=== PATIENT | male | born 1975 | race Caucasian/White ===

== ENCOUNTER 2021-09-20 06:45 | Day surgery (SDC) | payer BC ==
[2021-09-18 12:09] LABS: Absolute Lymphocytes (CBC) 2.2 K/uL (0.7-4.9); Hematocrit 46.6 % (39.6-49.0); Lymphocytes % 38.5 % (15.3-44.8); MPV 8.5 fL (7.6-11.3); RBC Red Blood Cell Count 5.44 M/uL (4.33-5.43)
--- NOTE | 2021-09-18 12:19 | RAD REPORT ---
EXAM DESCRIPTION: Giovani Casas And Prabha (2 Views)09/18/2021 12:12 pm CLINICAL HISTORY: Preop for hernia repair COMPARISON: None FINDINGS: Calcified granuloma left upper lobe. The lungs appear clear of acute infiltrate. The heart is normal size IMPRESSION: No acute abnormalities displayed
[2021-09-18 12:25] LABS: Potassium 4.2 mmol/L (3.5-5.1)
--- NOTE | 2021-09-18 18:24 | EKG ---
Test Date: 2021-09-18 Test Time: 11:57:35 Apartment Leasing Agent: BAKARI MEASUREMENT RESULTS: Intervals: Rate: 62 RI: 160 QRSD: 92 QT: 390 QTc: 395 [place]: P: 82 RI: 160 QRS: 69 T: 73 INTERPRETIVE STATEMENTS: Normal sinus rhythm with sinus arrhythmia Normal ECG No previous ECG available for comparison Electronically Signed On 09-18-21 18:23:20 CONTENT STRATEGIST by Erlin Butler
[2021-09-20] MEDS ORDERED: propofoL 200 MG/20 ML VIAL IV ONE (07:10)
[2021-09-20] MEDS ORDERED: FENTANYL CITR 100 MCG/2 ML ONE (07:10)
[2021-09-20] MEDS ORDERED: KETOROLAC 30 MG/ML INJ ONE (07:11)
[2021-09-20] MEDS ORDERED: ONDANSETRON 4 MG/2 ML VIAL ONE (07:11)
[2021-09-20] MEDS ORDERED: ROCURONIUM 50 MG/5 ML VIAL IV ONE (07:11)
[2021-09-20] MEDS ORDERED: MIDAZOLAM HCL 2 MG/2 ML INJ ONE (07:11)
[2021-09-20] MEDS ORDERED: LIDOCAINE 2% MPF 5 ML VIAL ONE (07:11)
[2021-09-20] MEDS ORDERED: dexAMETHasone 10 MG/ML VIAL ONE (07:11)
[2021-09-20] MEDS ORDERED: Ringers Lactate 1,000 ML IV ONE ×2 (07:23→09:21)
[2021-09-20] MEDS ORDERED: CEFAZOLIN/NS 1gm 1 GM/50 ML BAG ONE (07:24)
--- NOTE | 2021-09-20 09:17 | P.BOP ---
Preoperative diagnosis: tender LIH Postoperative diagnosis: same Primary procedure: Laparoscopic repair of tender left inguinal hernia with mesh Machine Folder: MAYI LANDA (MOTOR INSTALLER) Estimated blood loss: <10cc Specimen: hernia sac Findings: direct and indirect left inguinal hernia Complications: None Drain(s): Other Implants: 3d mesh Transferred to: Recovery Room Condition: Good
[2021-09-20] MEDS ORDERED: GLYCOPYRROLATE 0.2 MG/ML SYR ONE (09:18)
[2021-09-20] MEDS ORDERED: DIPHENHYDRAMINE 50 MG/ML VIAL ONE (09:18)
[2021-09-20] MEDS ORDERED: NEOSTIGMINE 1 MG/ML -5 ML ONE (09:19)
[2021-09-20] MEDS ORDERED: PROMETHAZINE INJ 25 MG/ML AMP ONE (09:50)
[2021-09-20] MEDS ORDERED: CODEINE 30MG/APAP 300MG TAB ONE (11:29)
[2021-09-20 12:12] VITALS: BP 142/86; TEMP 98.3; O2SAT 99
--- NOTE | 2021-09-20 14:12 | OP ---
Date of Procedure: 09/20/2021 Surgeon: Getachew Mullins MD [employer] Operator: Dee Martinez. Preoperative Diagnosis: Tender left inguinal hernia. Postoperative Diagnosis: Tender left inguinal hernia. Procedure: Laparoscopic repair of tender left inguinal hernia with mesh. Estimated Blood Loss: Less than 10 mL. Specimen: Hernia sac from the direct hernia. Findings: Direct and indirect left inguinal hernia. Complications: None. Drains: None. Implant: 3D mesh on the left side, medium size. Indication: This is the case of a male, who comes to us with tender left inguinal hernia. The benef its, alternatives, and risks of laparoscopic possible open repair were fully explained, which include , but not limited to infection, bleeding, damage to adjacent structures, anesthesia complication, rec urrence, chronic pain, chronic numbness, GA, and even . He also understands this may not reliev e any symptoms. He might need more than one surgical intervention. He understood, signed a consent. The area of concern was marked by me and the patient in the holding room. Procedure In Detail: The patient was brought to the operating room, placed in supine position. Anes thesia was done without complication. A time-out was called. Abdominal area was prepped and draped in usual sterile fashion. An incision was made in the infraumbilical region until we found the anter ior rectus sheath. The patient placed in Trendelenburg position. The anterior rectus was opened, mu scle retracted laterally to expose the posterior rectus sheath. The extraperitoneal space was develo ped with the help of blunt dissection and a balloon-tipped trocar placed on that area and directed to hanley the pubic symphysis under direct visualization. The scope was placed in that area and the ballo on was inflated under direct visualization once we created the extraperitoneal space. The balloon wa s deflated and removed under direct visualization. A 5 mm trocar was placed at the pubis symphysis a fter insufflating the area under direct visualization and another one fpc between the first and t he second one. The preperitoneal space was gently developed by exposing the inferior epigastric vess els keeping them anterior. Henok ligament was dissected laterally to the junction with the iliac ve ins. The dissection was continued inferiorly to the iliopubic tract avoiding damage to the femoral b ranch of the genitofemoral nerve and lateral femoral cutaneous nerve. The cord structures were caref ully skeletonized. We noticed 2 things here. He has a direct sac, indirect sac. The direct sac was carefully removed. The indirect sac was reduced back into the abdominal cavity after skeletonizing the cord structures and making sure they remained safe. At that moment, I proceeded to introduce the mesh sheet over the left inguinal region, 3D mesh rolled in a cylinder and then direct and aligned t o this area to cover direct and indirect spaces. The mesh was secured in place lateral and superior to the iliopubic tract and inferior medial to the Henok ligament with the help of [employer]. After e nsuring adequate hemostasis and while holding the mesh in place, we proceeded to deflate the area und er direct visualization. After that, I closed the anterior rectus sheath with #1 Vicryl and the skin in a subcuticular fashion with 3-0 chromic and Steri-Strips on top. Sponge count and instrument cou nts correct. At the end of the case, testicles were in the scrotum. The patient sent to recovery in stable condition. FROY/ROB Voice ID: [id number] Report ID: [id number]
--- NOTE | 2021-09-20 14:19 | DS ---
Date of Discharge: 09/20/2021 Diagnosis: Tender left inguinal hernia. Procedure: Laparoscopic repair of tender left inguinal hernia with mesh. Disposition: Home. Activity: As tolerated. No heavy lifting. Plan: Follow up in my office in 1 week. Call for appointment at [phone]. Keep area dry for 48 zhen rs, then may shower. Cold compress to the left inguinal region for 24 hours. Medications: See orders. FROY/MODNelson Voice ID: [id number] Report ID: [id number]
== END 2021-09-20 12:09 | disposition home or self-care (01) ==
LOC: OR 06:45
PROVIDERS: ATTEND Surgery
PROC: 0YU64JZ Supplement Left Inguinal Region with Synthetic Substitute, Percutaneous Endoscopic Approach (ICD-10-PCS; principal; 2021-09-20 08:15)
DX: K40.90 Unilateral inguinal hernia, without obstruction or gangrene, not specified as recurrent (principal); Z20.822 Contact with and (suspected) exposure to COVID-19
CPT/HCPCS: 93005; 85025; 80048; 36415; 88302; 71046; 49650; U0003; J2704; J2550; J1200; J2250; J3010; J1100; J2710; J0690; J7120 ×2; J2405